=== PATIENT | female | born 1990 | race Caucasian/White ===

== ENCOUNTER 2017-06-07 01:43 | Emergency (ER) | payer OTHER ==
[~2017-06-07] VITALS: Ht 162.6 cm; Wt 101.6 kg
[2017-06-07 01:55] VITALS: BP 126/74
[2017-06-07] MEDS ORDERED: LATUDA20 MG PO (02:00)
== END 2017-06-07 02:00 | disposition home or self-care (01) ==
LOC: M.ERS 01:43
DX: K13.79 Other lesions of oral mucosa (principal)

== ENCOUNTER 2017-08-08 22:12 | Emergency (ER) | payer OTHER ==
[~2017-08-08] VITALS: Ht 162.6 cm; Wt 91.2 kg
[~2017-08-08 22:12] MED LIST: LATUDA20 MG PO
[2017-08-08 22:40] LABS: URINE BILIRUBIN NEGATIVE (Negative); URINE BLOOD NEGATIVE (Negative); URINE CLARITY CLEAR; URINE COLOR YELLOW; URINE GLUCOSE-RANDOM NEGATIVE (Negative); URINE KETONES NEGATIVE (Negative); URINE LEUKOCYTES-REFLEX NEGATIVE (Negative); URINE NITRITE-REFLEX NEGATIVE (Negative); URINE PROTEIN NEGATIVE (Negative); URINE SPECIFIC GRAVITY >= 1.030 (1.005-1.030); URINE UROBILINOGEN 0.2 E.U./dl (0.2-1.0)
[2017-08-08] MEDS ORDERED: GRALISE600 MG (22:40)
[2017-08-08] MEDS ORDERED: NAPROSYN500 MG (22:41)
[2017-08-08] MEDS ORDERED: VYVANSE50 MG (22:41)
[2017-08-08] MEDS ORDERED: CARISOPRODOL 3350 MG (22:42)
[2017-08-08] MEDS ORDERED: XANAX1 MG (22:42)
[2017-08-08] MEDS ORDERED: ATIVAN1 MG (22:42)
[2017-08-08] MEDS ORDERED: PERCOCET 7.5-31 EACH (22:43)
[2017-08-08 22:59] LABS: ABSOLUTE BASOPHILS 0.1 thou/uL (0.0-0.2); ABSOLUTE EOSINOPHILS 0.2 thou/uL (0.0-0.7); ABSOLUTE LYMPHOCYTES 2.7 thou/uL (0.8-5.3); ABSOLUTE MONOCYTES 0.7 thou/uL (0.0-1.2); ABSOLUTE NEUTROPHILS 3.6 thou/uL (1.6-8.1); BASOPHILS 1.2 %; EOSINOPHILS 3.1 %; HEMATOCRIT 34.5 % (37.0-47.0); HEMOGLOBIN 11.6 gm/dL (12.0-15.0); MCH 30.3 pg (26.0-34.0); MCHC 33.7 g/dL (28.0-37.0); MCV 89.9 fL (80.0-100.0); MONOCYTES 9.2 %; MPV 7.4 fl. (7.2-11.1); NUCLEATED RBCS 0 /100WBC; PLATELET COUNT* 298 thou/uL (150-400); POLYS 49.5 %; RBC 3.83 mil/uL (4.20-5.00); RDW-CV 13.6 % (10.5-14.5); WBC 7.2 thou/uL (4.0-11.0)
[2017-08-08 23:07] LABS: CALCIUM 8.3 mg/dL (8.5-10.1); CREATININE 0.8 mg/dL (0.6-1.3); POTASSIUM 3.8 mmol/L (3.5-5.1)
[2017-08-08 23:12] LABS: ALBUMIN 3.1 g/dL (3.4-5.0); TOTAL BILIRUBIN 0.2 mg/dL (<0.1-1.0); TOTAL PROTEIN 6.4 g/dL (6.4-8.2)
[2017-08-08 23:38] LABS: AMP/METHAMP Negative (Negative); BARBITURATES Negative (Negative); BENZODIAZEPINES Negative (Negative); COCAINE Negative (Negative); METHADONE Negative (Negative); OPIATES Negative (Negative); PCP Negative (Negative); THC Negative (Negative)
[2017-08-09 07:08] VITALS: BP 114/67
== END 2017-08-09 07:09 ==
LOC: M.ERS 22:12
PROVIDERS: Emergency Medicine
DX: F32.9 Major depressive disorder, single episode, unspecified (principal); S90.421A Blister (nonthermal), right great toe, initial encounter; E03.9 Hypothyroidism, unspecified; A69.20 Lyme disease, unspecified; Z88.8 Allergy status to other drugs, medicaments and biological substances; Y04.0XXA Assault by unarmed brawl or fight, initial encounter; Y93.89 Activity, other specified; Y92.89 Other specified places as the place of occurrence of the external cause; Y99.8 Other external cause status